=== PATIENT | female | born 1950 | race Hispanic/Latino ===

== ENCOUNTER 2018-01-02 13:40 | Outpatient (CLI) | payer MEDICARE ==
--- NOTE | 2018-01-02 14:12 | CT ---
NONCONTRAST HEAD CT: HISTORY: Painless bump in the mid aspect of the forehead. Exostosis. COMPARISON: None. TECHNIQUE: A noncontrast head CT is performed from the skull base to the skull vertex. FINDINGS: There are well circumscribed calcifications along the midline frontal scalp, measuring 0.7 cm. These calcifications may be due to remote insult. The underlying calvarium and the remainder of the elena rium is intact. Adequate aeration of the sinuses and mastoid air cells. Both orbits are grossly unremarkable. Both ocular lenses are appropriately located. No parenchymal hemorrhage or extraaxial hematoma. No midline shift. The basilar cisterns are patent . Brain volume is age appropriate. Cortical mchugh white matter differentiation is preserved. No evidence of hydrocephalus. IMPRESSION: Soft tissue calcifications involving the midline of the scalp. No acute intracranial process. POS: [facility]
== END 2018-01-02 13:41 | disposition home or self-care (01) ==
LOC: TBSIIMAG 13:40
PROVIDERS: ATTEND Surgery
DX: M89.9 Disorder of bone, unspecified (principal); R93.0 Abnormal findings on diagnostic imaging of skull and head, not elsewhere classified
CPT/HCPCS: 70450

== ENCOUNTER 2018-02-14 13:00 | Inpatient (IN) | payer MEDICARE ==
[2018-02-14 13:15] VITALS: BMI 23.8
[2018-02-17] MEDS ORDERED: CEFAZOLIN/Water 2 GM/20 ML SYRINGE ONE (07:40)
[2018-02-17] MEDS ORDERED: Lidocaine 0.5%/Epinephrine 1:200,000 50 ml Vial ONE (09:36)
[2018-02-17] MEDS ORDERED: Fentanyl 100 MCG/2 ML VIAL ONE ×3 (09:51→11:07)
[2018-02-17] MEDS ORDERED: Bacitracin Zinc Ointment 30 gm TUBE ONE (10:35)
--- NOTE | 2018-02-17 11:08 | OP ---
DATE OF PROCEDURE: 02/17/2018 SURGEON: Cade Menendez M.D. ELECTRICAL SUBCONTRACTOR: Phyllis Andrade PROCEDURE: Removal of frontal skull lesion. PROCEDURE IN DETAIL: The patient was brought to the operating room and anesthesia was instituted. S he was positioned supine with the head in midline position and this was shaved, prepped, and draped i n sterile fashion. Incision was made just superior to the lesion right at the hairline and the lesio n was exposed. It had actually turned out to be 2 bony prominences. These were drilled and complete ly removed without difficulty. There were no suspicious features. The wound was then extensively ir rigated, immaculate hemostasis was secured, and the wound was closed in anatomic layers.
== END 2018-02-17 12:50 | disposition home or self-care (01) | DRG 517 ==
LOC: SURG A 02-17 07:03
PROVIDERS: ADMIT Neurological Surgery; ATTEND Neurological Surgery
PROC: 0NB10ZZ Excision of Frontal Bone, Open Approach (ICD-10-PCS; principal; 2018-02-17)
DX: M89.8X8 Other specified disorders of bone, other site (principal)
CPT/HCPCS: 80048; 85027; 93005; 93010; 96374; J2001; J3010